=== PATIENT | female | born 1930 ===

== ENCOUNTER 2019-06-06 14:00 | Emergency (ER) | payer OTHER ==
[~2019-06-06] VITALS: Ht 160 cm; Wt 54.4 kg
[2019-06-06] MEDS ORDERED: PLAVIX75 MG PO (14:42)
[2019-06-06] MEDS ORDERED: HYDRALAZINE HCL50 MG PO (14:42)
[2019-06-06] MEDS ORDERED: KAPSPARGO SPRIN50 MG PO (14:43)
== END 2019-06-06 16:48 | disposition home or self-care (01) ==
LOC: ER 14:00
DX: I16.0 Hypertensive urgency (principal); I10 Essential (primary) hypertension